=== PATIENT | male | born 1945 | race Caucasian/White ===

== ENCOUNTER 2019-04-10 09:40 | Outpatient (CLI) | payer OTHER ==
[~2019-04-10] VITALS: Ht 185.4 cm; Wt 90.4 kg
[2019-04-10 10:12] VITALS: BP 191/72
== END 2019-04-10 23:59 | disposition home or self-care (01) ==
LOC: SDC 09:40 → OUT 09:40 → EDSTATUS 13:00 → SDC 23:59
PROVIDERS: ATTEND Urology
DX: D49.512 Neoplasm of unspecified behavior of left kidney (principal); Z53.8 Procedure and treatment not carried out for other reasons; I10 Essential (primary) hypertension; Z72.89 Other problems related to lifestyle; Z79.899 Other long term (current) drug therapy; Z91.040 Latex allergy status
CPT/HCPCS: 36415; 80053; 81001; 85025; 86850; 86900; 93005; J7120; J0171; J0690; J1100; J2250; J2704; J3010; J3490; J1720; J1940